=== PATIENT | male | born 1975 | race Hispanic/Latino ===

== ENCOUNTER 2018-07-20 15:51 | Emergency (ER) | payer BC ==
[~2018-07-20] VITALS: Ht 167.6 cm; Wt 163.3 kg
--- NOTE | 2018-07-20 17:34 | Diagnostic Imaging Report ---
A single frontal view of the chest and 4 additional views of the ribs. HISTORY: right sided rib pain, side hurting, fall, right side COMPARISON: None available. DISCUSSION: Portable technique, limits sensitivity of the exam. Soft tissue attenuation partially limits sensitivity of the exam. Tubes/Lines: None Lungs and pleura: Low lung volumes result in bibasilar vascular crowding, accentuation of the pulmonary interstitial markings, central pulmonary vasculature, and the cardiac silhouette. Allowing for these limitations, the findings are as follows: No evidence of a consolidative pneumonia or pulmonary alveolar edema. No definite pleural effusion or pneumothorax is identified. Heart and mediastinum: The cardiomediastinal silhouette appears unremarkable. Bones and soft tissues: No acute displaced fracture. IMPRESSION: No acute radiographic abnormality. Signed by: Dr. Israel Lawson D.O., M.M.M. on 07/20/2018 5:31 PM
== END 2018-07-20 20:00 | disposition home or self-care (01) ==
LOC: ER 15:51
DX: S20.211A Contusion of right front wall of thorax, initial encounter (principal); W01.0XXA Fall on same level from slipping, tripping and stumbling without subsequent striking against object, initial encounter; Y92.008 Other place in unspecified non-institutional (private) residence as the place of occurrence of the external cause; E66.9 Obesity, unspecified
CPT/HCPCS: 71101